=== PATIENT | male | born 1935 | race Caucasian/White ===

== ENCOUNTER → 2018-08-24 15:35 | Outpatient (CLI) | payer MEDICARE, SELFPAY ==
--- NOTE | 2018-08-24 | DI.RAD.S_ITS ---
PROCEDURE: XR HIP W PEL IF DONE RT 2V INDICATIONS: Rt hip pain TECHNIQUE: AP pelvis with lateral view(s) of the right hip(s). COMPARISON: [facility], , HIP 2V LEFT, 09/15/2012, 10:07. FINDINGS: Bones: Patient is status post prior left total hip arthroplasty. Moderate to severe right hip joint osteoarthritic changes are seen. No fractures or dislocations. No evidence of avascular necrosis. No gross hardware loosening or failure. Pelvic ring appears intact. No suspicious bony lesions. Soft tissues: The visualized bowel gas pattern is normal. No suspicious soft tissue calcifications. IMPRESSION: Prior left total hip arthroplasty. Moderate to severe right hip joint osteoarthritis. No evidence of avascular necrosis. Dictated by: Gordy Braden M.D. on 08/25/2018 at 9:01 Approved by: Gordy Braden M.D. on 08/25/2018 at 9:02
== END ==
PROVIDERS: PCP Family Medicine; Visit Provider Family Medicine
DX: M25.551 Pain in right hip (principal); Z96.642 Presence of left artificial hip joint; M16.11 Unilateral primary osteoarthritis, right hip
CPT/HCPCS: 73502

== ENCOUNTER → 2018-11-17 08:49 | Outpatient (CLI) | payer MEDICARE, SELFPAY ==
--- NOTE | 2018-11-17 | DI.RAD.S_ITS ---
PROCEDURE: XR SHOULDER LT MIN 2V INDICATIONS: LT SHOULDER PAIN TECHNIQUE: 3 views of the shoulder were acquired. COMPARISON: [facility], RG, XR SHOULDER 2V LT, 03/12/2004, 9:13. FINDINGS: Bones: No fractures or dislocations. No suspicious bony lesions. Visualized ribs appear intact. BANDAR and glenohumeral joint degeneration. Small ununited osteophyte versus dystrophic calcification projects at the lateral aspect of the acromion. Differential does include faint calcific tendinitis Soft tissues: No suspicious soft tissue calcifications. IMPRESSION: Degenerative changes as above, progressed since 03/12/04. If the patient's pain or other symptoms persist, consider further evaluation with MRI Dictated by: Jonatan Nichols M.D. on 11/17/2018 at 10:47 Approved by: Jonatan Nichols M.D. on 11/17/2018 at 10:51
== END ==
PROVIDERS: PCP Family Medicine; Visit Provider Family Medicine
DX: M25.512 Pain in left shoulder (principal); M19.012 Primary osteoarthritis, left shoulder
CPT/HCPCS: 73030

== ENCOUNTER → 2023-07-24 08:17 | Outpatient (CLI) | payer MEDICARE, SELFPAY ==
[2023-07-24 10:41] LABS: Alanine Aminotransferase 16 IU/L (<50); Albumin Globulin Ratio 1.5 (1.0-2.8); Alkaline Phosphatase 90 U/L (38-126); Aspartate Aminotransferase 16 IU/L (17-59); BUN Creatinine Ratio 16.9 (6-22); Bilirubin Total 0.7 mg/dL (0.2-1.3); Blood Urea Nitrogen 32 mg/dL (9-20); Calcium 9.5 mg/dL (8.4-10.2); Carbon Dioxide 26 mmol/L (22-32); Chloride 107 mmol/L (98-107); Cholesterol 125 mg/dL (140-199); Estimated Glomerular Filt Rate 34 mL/min (>60); Globulin 2.6 g/dL (1.7-4.1); Glucose 142 mg/dL (80-110); HDL Cholesterol 64 mg/dL (40-60); HEMOLYSIS < 15 (0-50); LDL Cholesterol Calculated 52 mg/dL (<100); Potassium 4.9 mmol/L (3.4-5.1); Sodium 138 mmol/L (137-145); Total Protein 6.6 g/dL (6.3-8.2); Triglycerides 44 mg/dL (35-150)
[2023-07-24 12:35] LABS: Creatinine Urine Random 76.05 mg/dL
[2023-07-24 12:42] LABS: Microalbumin Urine Random 7.2 mg/dL (0-1.6)
== END ==
PROVIDERS: PCP Family Medicine; Referring Provider Family Medicine; Visit Provider Family Medicine
DX: E11.9 Type 2 diabetes mellitus without complications (principal)
CPT/HCPCS: 36415; 80053; 80061; 82043; 82570

== ENCOUNTER → 2023-08-21 09:21 | Outpatient (CLI) | payer MEDICARE, SELFPAY ==
[2023-08-21 11:10] LABS: BUN Creatinine Ratio 19.5 (6-22); Blood Urea Nitrogen 36 mg/dL (9-20); Calcium 9.3 mg/dL (8.4-10.2); Carbon Dioxide 23 mmol/L (22-32); Chloride 107 mmol/L (98-107); Estimated Glomerular Filt Rate 35 mL/min (>60); Glucose 183 mg/dL (80-110); HEMOLYSIS < 15 (0-50); Potassium 4.4 mmol/L (3.4-5.1); Sodium 137 mmol/L (137-145)
== END ==
PROVIDERS: PCP Family Medicine; Referring Provider Family Medicine; Visit Provider Family Medicine
DX: E11.22 Type 2 diabetes mellitus with diabetic chronic kidney disease (principal); N18.32 Chronic kidney disease, stage 3b
CPT/HCPCS: 36415; 80048

== ENCOUNTER → 2023-10-06 07:22 | Outpatient (CLI) | payer MEDICARE, SELFPAY ==
[2023-10-06 08:33] LABS: BUN Creatinine Ratio 17.2 (6-22); Blood Urea Nitrogen 38 mg/dL (9-20); Calcium 9.3 mg/dL (8.4-10.2); Carbon Dioxide 20 mmol/L (22-32); Chloride 108 mmol/L (98-107); Estimated Glomerular Filt Rate 28 mL/min (>60); Glucose 155 mg/dL (80-110); HEMOLYSIS < 15 (0-50); Potassium 4.4 mmol/L (3.4-5.1); Sodium 139 mmol/L (137-145)
[2023-10-06 10:09] LABS: Hemoglobin A1C% w Est Avg Glu 7.5 % (4.0-6.0)
== END ==
PROVIDERS: PCP Family Medicine; Referring Provider Family Medicine; Visit Provider Family Medicine
DX: E11.22 Type 2 diabetes mellitus with diabetic chronic kidney disease (principal); N18.32 Chronic kidney disease, stage 3b
CPT/HCPCS: 36415; 80048; 83036

== ENCOUNTER → 2023-10-19 09:46 | Outpatient (CLI) | payer MEDICARE, SELFPAY ==
[2023-10-19 11:38] LABS: BUN Creatinine Ratio 20.3 (6-22); Blood Urea Nitrogen 35 mg/dL (9-20); Calcium 9.3 mg/dL (8.4-10.2); Carbon Dioxide 21 mmol/L (22-32); Chloride 105 mmol/L (98-107); Estimated Glomerular Filt Rate 38 mL/min (>60); Glucose 265 mg/dL (80-110); HEMOLYSIS < 15 (0-50); Potassium 4.3 mmol/L (3.4-5.1); Sodium 137 mmol/L (137-145)
== END ==
LOC: LAB 09:47
PROVIDERS: PCP Family Medicine; Referring Provider Family Medicine; Visit Provider Family Medicine
DX: N18.32 Chronic kidney disease, stage 3b (principal)
CPT/HCPCS: 36415; 80048

== ENCOUNTER → 2023-11-19 07:21 | Outpatient (CLI) | payer MEDICARE, SELFPAY ==
[2023-11-19 08:35] LABS: Hematocrit 38.4 % (41-53); Mean Corpuscular HGB Conc 33.8 % (30-36); Mean Corpuscular Hemoglobin 31.9 PG (26-34); Mean Corpuscular Volume 94.5 fL (80-100); Platelet Count 183 X10^3/uL (150-400); Red Blood Cell Count 4.07 X10^6/uL (4.5-5.9); White Blood Cell Count 7.6 X10^3/uL (4.5-11.0)
[2023-11-19 08:36] LABS: Add Manual Diff / Slide Review YES
[2023-11-19 08:44] LABS: Hemoglobin A1C% w Est Avg Glu 7.4 % (4.0-6.0)
[2023-11-19 08:53] LABS: Blood Urea Nitrogen 29 mg/dL (9-20); Calcium 9.6 mg/dL (8.4-10.2); Carbon Dioxide 23 mmol/L (22-32); Chloride 104 mmol/L (98-107); Cholesterol 131 mg/dL (140-199); Estimated Glomerular Filt Rate 36 mL/min (>60); Glucose 170 mg/dL (80-110); HDL Cholesterol 60 mg/dL (40-60); HEMOLYSIS < 15 (0-50); LDL Cholesterol Calculated 60 mg/dL (<100); Potassium 4.5 mmol/L (3.4-5.1); Sodium 136 mmol/L (137-145); Triglycerides 57 mg/dL (35-150)
[2023-11-19 10:37] LABS: Neutrophils Absolute Manual 3572 /uL (3000-5900); Total Cells Counted 100
[2023-11-19 10:38] LABS: Polychromasia 1+; Smudge Cells 2+
== END ==
PROVIDERS: PCP Family Medicine; Referring Provider Family Medicine; Visit Provider Family Medicine
DX: E11.22 Type 2 diabetes mellitus with diabetic chronic kidney disease (principal); N18.32 Chronic kidney disease, stage 3b
CPT/HCPCS: 36415; 80048; 80061; 83036; 85007; 85025

== ENCOUNTER → 2024-07-14 08:22 | Outpatient (CLI) | payer MEDICARE, SELFPAY ==
[2024-07-14 09:53] LABS: Troponin I < 0.012 ng/mL (0.01-0.034)
== END ==
PROVIDERS: PCP Family Medicine; Referring Provider Family Medicine; Visit Provider Family Medicine
DX: R07.9 Chest pain, unspecified (principal)
CPT/HCPCS: 36415; 84484

== ENCOUNTER → 2024-09-14 06:55 | Outpatient (CLI) | payer MEDICARE, SELFPAY ==
[2024-09-14 07:42] LABS: Hematocrit 35.6 % (41-53); Hemoglobin 12.5 g/dL (13.5-17.5); Mean Corpuscular HGB Conc 35.2 % (30-36); Mean Corpuscular Hemoglobin 33.0 PG (26-34); Mean Corpuscular Volume 93.6 fL (80-100); Platelet Count 184 X10^3/uL (150-400)
[2024-09-14 08:05] LABS: Hemoglobin A1C% w Est Avg Glu 7.9 % (4.0-6.0)
[2024-09-14 08:06] LABS: Alanine Aminotransferase 24 IU/L (<50); Albumin 4.2 g/dL (3.5-5.0); Albumin Globulin Ratio 1.6 (1.0-2.8); Alkaline Phosphatase 89 U/L (38-126); Blood Urea Nitrogen 33 mg/dL (9-20); Calcium 9.2 mg/dL (8.4-10.2); Carbon Dioxide 20 mmol/L (22-32); Chloride 107 mmol/L (98-107); Cholesterol 124 mg/dL (140-199); Estimated Glomerular Filt Rate 38 mL/min (>60); Globulin 2.6 g/dL (1.7-4.1); Glucose 126 mg/dL (70-99); HDL Cholesterol 57 mg/dL (40-60); HEMOLYSIS < 15 (0-50); Potassium 4.1 mmol/L (3.4-5.1); Sodium 139 mmol/L (137-145); Total Protein 6.8 g/dL (6.3-8.2); Triglycerides 43 mg/dL (35-150)
[2024-09-14 09:43] LABS: Microalbumi Creatinin Ratio Ur 124.0 ug/mg CR (<30)
== END ==
PROVIDERS: PCP Family Medicine; Referring Provider Family Medicine; Visit Provider Family Medicine
DX: E11.22 Type 2 diabetes mellitus with diabetic chronic kidney disease (principal); N18.32 Chronic kidney disease, stage 3b
CPT/HCPCS: 36415; 80053; 80061; 82043; 82570; 83036; 85027